=== PATIENT | male | born 2000 | race Two or more races ===

== ENCOUNTER 2023-08-12 14:45 | Emergency (ER) | payer OTHER ==
[~2023-08-12] VITALS: Ht 177.8 cm; Wt 88.5 kg
[2023-08-12] MEDS ORDERED: FINASTERIDE1 MG PO (15:38)
[2023-08-12] MEDS ORDERED: DESCOVY 200-251 EACH PO (15:38)
[2023-08-12 17:25] LABS: HEMATOCRIT 40.1 % (39.0-48.0); HEMOGLOBIN 14.1 g/dL (13-16.00); MEAN CELL VOLUME 87.3 fL (80.0-100.00); MEAN CORPUSCULAR HEMOGLOBIN 30.7 pg (27.00-32.0); MEAN CORPUSCULAR HGB CONC 35.1 g/dl (32.0-36.0); PLATELET COUNT 244 K/uL (150-450); RED BLOOD COUNT 4.59 M/uL (4.00-6.00); RED CELL DISTRIBUTION WIDTH 12.9 % (11.5-14.5)
[2023-08-12 17:29] LABS: ERYTHROCYTE SEDIMENTATION RATE 7 mm/hr
[2023-08-12 17:42] LABS: INR 1.06; PARTIAL THROMBOPLASTIN TIME 31.7 SECONDS (22.0-34.0); PROTHROMBIN TIME 11.1 SECONDS (9.0-11.5)
[2023-08-12 18:02] LABS: URINE APPEARANCE Clear; URINE BILIRRUBIN Negative (NEGATIVE); URINE BLOOD Negative; URINE COLOR Yellow; URINE GLUCOSE Negative (NEGATIVE); URINE LEUKOCYTE Negative; URINE NITRATE Negative; URINE PROTEIN Negative (NEGATIVE)
[2023-08-12 18:06] LABS: URINE RBC 4.8 uL (0.0-20.8)
[2023-08-12 18:27] LABS: ALBUMIN 3.9 gm/dL (3.4-5.0); BILIRUBIN TOTAL 0.39 mg/dL (0.3-1.2); C-REACTIVE PROTEIN 1.02 MG/DL (0.00-0.29); CALCIUM 8.8 mg/dL (8.5-10.1); CREATININE SERUM 0.98 mg/dL (0.70-1.30); GFR 93.19; GLOBULINA 3.8 G/DL (2.4-3.5); POTASSIUM 3.98 mEq/L (3.5-5.1); TOTAL PROTEIN 7.7 gm/dL (6.4-8.2)
[2023-08-12 19:05] LABS: URINE BACTERIA 3.7 uL (0.0-1933); URINE WBC 0.4 uL (0.0-23.2)
== END 2023-08-12 19:53 | disposition home or self-care (01) ==
LOC: ER 14:45
PROVIDERS: General Practice
DX: R23.3 Spontaneous ecchymoses (principal); R21 Rash and other nonspecific skin eruption